=== PATIENT | male | born 2005 | race Caucasian/White ===

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

== ENCOUNTER → 2023-03-09 12:09 | Outpatient (CLI) | payer BC, SELFPAY ==
--- NOTE | ~2023-03-09 | XR_ITS ---
EXAMINATION: XR toe 1st LT min 2V DATE: 03/09/2023 12:25 INDICATION: Osteomyelitis TECHNIQUE: Dorsal plantar and lateral views of the left great toe were obtained. COMPARISON: None FINDINGS: Bone alignment is normal. No fracture. Mild joint space narrowing at the second distal interphalangea l joint. There is lucency underlying the toenail at the dorsal of the left first distal phalanx. No e vident cortical erosion, osteolysis or periosteal reaction to suggest osteomyelitis. IMPRESSION: No osteomyelitis. Reviewed, dictated and finalized at location A. IMPRESSION: No osteomyelitis.
== END ==
PROVIDERS: PCP Internal Medicine; Visit Provider Internal Medicine
DX: M86.9 Osteomyelitis, unspecified (principal)
CPT/HCPCS: 73660